=== PATIENT | female | born 1975 | race Two or more races ===

== ENCOUNTER 2023-12-11 19:37 | Emergency (ER) | payer MEDICAID, OTHER ==
[~2023-12-11] VITALS: Ht 154.9 cm; Wt 59.0 kg
[2023-12-11] MEDS ORDERED: NAP500T GT (21:28)
[2023-12-11 22:31] VITALS: BP 148/85; PULSE 65; RESP 16; TEMP 98.7; O2SAT 100
== END 2023-12-11 22:35 | disposition home or self-care (01) ==
LOC: EDBD 19:37 → ER 19:37
DX: M25.512 Pain in left shoulder (principal); M25.511 Pain in right shoulder; V43.62XA Car passenger injured in collision with other type car in traffic accident, initial encounter; Y93.89 Activity, other specified; Y92.488 Other paved roadways as the place of occurrence of the external cause; Y99.8 Other external cause status
CPT/HCPCS: 71250; 73030; 74176